=== PATIENT | male | born 1960 | race Caucasian/White ===

== ENCOUNTER 2020-11-20 14:38 | Inpatient (IN) ==
[2020-11-20] MEDS ORDERED: Ibuprofen 400 MG TABLET PO PRN (16:57)
[2020-11-20] MEDS ORDERED: Naloxone 0.4 MG/ML INJ IVP PRN (16:57)
[2020-11-20] MEDS ORDERED: *HR* LORazepam 2 MG/ML VIAL IVP PRN ×3 (17:02)
[2020-11-20] MEDS ORDERED: Thiamine (B-1) 200 MG in 0.9 % Sodium Chloride 50 ML IVPB ONE (17:03)
[2020-11-20] MEDS: *HR* LORazepam 0.5 MG TABLET PO SCH ×2 (17:29→20:49)
[2020-11-20] MEDS ORDERED: Potassium Chloride 40 MEQ, Lidocaine 1% 2 ML in 0.9 % Sodium Chloride 500 ML IVPB ONE (18:10)
[2020-11-20 18:13] LABS: INR 1.7; Prothrombin Time 19.6 Seconds (9.4-12.1)
[2020-11-20 18:23] LABS: Alanine Aminotransferase 113 Units/L (7-52); Albumin 2.5 g/dL (3.5-5.7); Albumin/Globulin Ratio 0.6 (1.1-2.2); Alkaline Phosphatase 385 Units/L (34-104); Aspartate Amino Transferase 331 Units/L (13-39); Bilirubin,Direct 8.4 mg/dL (0.0-0.2); Bilirubin,Indirect 6.8 mg/dL (0.0-1.0); Bilirubin,Total 15.2 mg/dL (0.3-1.0); Ethanol 42 mg/dL (Less than 10); Globulin 4.4 g/dL (2.4-3.5); Total Protein 6.9 g/dL (6.4-8.9)
[2020-11-20 18:52] LABS: Basophils # 0.1 K/mcL (0.0-0.2); Eosinophils # 0.1 K/mcL (0.0-0.6); Eosinophils % 0.4 %; Hemoglobin 11.8 g/dL (12.9-16.9); Immature Granulocytes % 1.7 % (0-4); Lymphocytes # 1.5 K/mcL (0.6-4.6); Lymphocytes % 12.6 %; Mean Corpuscular HGB Conc 34.7 g/dL (31.6-35.5); Mean Corpuscular Hemoglobin 36.2 pg (28.0-33.3); Mean Corpuscular Volume 104.3 fL (83.0-100.0); Mean Platelet Volume 9.4 fL (9.4-12.4); Monocytes # 1.1 K/mcL (0.0-1.3); Monocytes % 9.1 %; Neutrophils # 8.7 K/mcL (1.6-8.9); Platelet Count 198 K/mcL (140-400); Red Blood Count 3.26 M/mcL (4.19-5.50); Red Cell Distribution Width 14.6 % (11.5-14.5); Segmented Neutrophils % 75.2 %; White Blood Count 11.6 K/mcL (4.3-11.1)
[2020-11-20 18:57] LABS: Acetaminophen < 10 mcg/mL (10-20); BUN/Creatinine Ratio 6 (6-26); Blood Urea Nitrogen 4 mg/dL (6-20); Calcium 8.1 mg/dL (8.6-10.3); Carbon Dioxide 23 mEq/L (23-29); Chloride 97 mEq/L (98-107); Glucose 112 mg/dL (70-105); Lipase 119 Units/L (11-82); Magnesium 1.9 mg/dL (1.6-2.6); Osmolality,Calculated 270 (280-300); Phosphorous 1.8 mg/dL (2.7-4.5); Potassium 2.9 mEq/L (3.5-5.1); Sodium 131 mEq/L (136-145); eGFR For African Americans > 60 (> 60); eGFR For Non-African Americans > 60 (> 60)
[2020-11-20 19:05] LABS: Hepatitis B Surface Antigen Nonreactive (Nonreactive)
[2020-11-20 19:33] LABS: Hepatitis C Virus Antibody Nonreactive (Nonreactive)
[2020-11-20 19:35] LABS: Hepatitis A Antibody IgM Nonreactive (Nonreactive)
[2020-11-20] MEDS ORDERED: Lactulose Oral Soln 20 GM/30 ML UDC PO SCH (21:00)
[2020-11-20] MEDS ORDERED: Potassium Phosphate 44 MEQ in 0.9 % Sodium Chloride 250 ML IVPB ONE (21:32)
[2020-11-20 21:41] LABS: Amphetamine Screen,Urine Negative ng/mL (Cutoff=1000); Barbiturate Screen,Urine Negative ng/mL (Cutoff=200); Benzodiazepines Screen,Urine Negative ng/mL (Cutoff=200); Cannabinoid Screen,Urine Positive ng/mL (Cutoff = 50); Cocaine Screen,Urine Negative ng/mL (Cutoff= 300); Opiate Screen,Urine Negative ng/mL (Cutoff=300); Phencyclidine Screen,Urine Negative ng/mL (Cutoff=25)
[2020-11-21 00:18] LABS: Basophils # 0.1 K/mcL (0.0-0.2); Basophils % 1.1 %; Eosinophils # 0.1 K/mcL (0.0-0.6); Eosinophils % 0.9 %; Hematocrit 34.8 % (37.5-50.1); Hemoglobin 12.3 g/dL (12.9-16.9); Immature Granulocytes % 1.8 % (0-4); Lymphocytes # 1.2 K/mcL (0.6-4.6); Lymphocytes % 12.5 %; Mean Corpuscular HGB Conc 35.3 g/dL (31.6-35.5); Mean Corpuscular Volume 104.8 fL (83.0-100.0); Mean Platelet Volume 9.6 fL (9.4-12.4); Monocytes % 9.7 %; Neutrophils # 7.4 K/mcL (1.6-8.9); Platelet Count 195 K/mcL (140-400); Red Blood Count 3.32 M/mcL (4.19-5.50); Red Cell Distribution Width 14.6 % (11.5-14.5); White Blood Count 9.9 K/mcL (4.3-11.1)
[2020-11-21 00:33] LABS: Alanine Aminotransferase 107 Units/L (7-52); Albumin 2.4 g/dL (3.5-5.7); Albumin/Globulin Ratio 0.6 (1.1-2.2); Alkaline Phosphatase 361 Units/L (34-104); Aspartate Amino Transferase 301 Units/L (13-39); BUN/Creatinine Ratio 6 (6-26); Bilirubin,Direct 9.4 mg/dL (0.0-0.2); Bilirubin,Indirect 5.9 mg/dL (0.0-1.0); Bilirubin,Total 15.3 mg/dL (0.3-1.0); Blood Urea Nitrogen 5 mg/dL (6-20); Calcium 7.9 mg/dL (8.6-10.3); Carbon Dioxide 24 mEq/L (23-29); Chloride 98 mEq/L (98-107); Glucose 127 mg/dL (70-105); Magnesium 2.3 mg/dL (1.6-2.6); Osmolality,Calculated 269 (280-300); Sodium 130 mEq/L (136-145); Total Protein 6.4 g/dL (6.4-8.9); eGFR For African Americans > 60 (> 60); eGFR For Non-African Americans > 60 (> 60)
[2020-11-21 00:34] LABS: BUN/Creatinine Ratio 6 (6-26); Blood Urea Nitrogen 5 mg/dL (6-20); Calcium 7.8 mg/dL (8.6-10.3); Carbon Dioxide 24 mEq/L (23-29); Chloride 98 mEq/L (98-107); Glucose 124 mg/dL (70-105); Osmolality,Calculated 271 (280-300); Potassium 2.9 mEq/L (3.5-5.1); Sodium 131 mEq/L (136-145); eGFR For African Americans > 60 (> 60); eGFR For Non-African Americans > 60 (> 60)
[2020-11-21] MEDS ORDERED: Potassium Phosphate 44 MEQ in 0.9 % Sodium Chloride 250 ML IVPB ONE ×2 (07:50→11:00)
[2020-11-21] MEDS ORDERED: Potassium Chloride 20 MEQ, Lidocaine 1% 2 ML in 0.9 % Sodium Chloride 250 ML IVPB ONE (07:50)
[2020-11-21] MEDS: *HR* LORazepam 0.5 MG TABLET PO SCH ×3 (08:46→20:52)
[2020-11-21] MEDS: Thiamine (B-1) 100 MG TABLET PO SCH (08:46)
[2020-11-21] MEDS: Lactulose Oral Soln 20 GM/30 ML UDC PO SCH ×3 (08:46→20:52)
[2020-11-21] MEDS: Vitamin B Complex/Vit C/Vit E 1 EACH TABLET PO SCH (08:46)
[2020-11-21] MEDS: Folic Acid 1 MG TABLET PO SCH (08:47)
[2020-11-21 10:14] LABS: BUN/Creatinine Ratio 8 (6-26); Blood Urea Nitrogen 6 mg/dL (6-20); Calcium 8.2 mg/dL (8.6-10.3); Carbon Dioxide 26 mEq/L (23-29); Chloride 100 mEq/L (98-107); Glucose 116 mg/dL (70-105); Osmolality,Calculated 275 (280-300); Potassium 3.1 mEq/L (3.5-5.1); Sodium 133 mEq/L (136-145); eGFR For African Americans > 60 (> 60); eGFR For Non-African Americans > 60 (> 60)
[2020-11-22 04:02] LABS: Bilirubin,Urine Moderate (Negative); Blood,Urine Negative (Negative); Clarity,Urine Clear (Clear); Color,Urine Dark-Yellow (Yellow); Glucose,Urine (UA) Normal (Normal); Ketones,Urine Negative (Negative); Leukocyte Esterase,Urine Negative (Negative); Nitrite,Urine Negative (Negative); Protein,Urine Negative (Neg-Trace); Specific Gravity,Urine 1.006 (1.010-1.025); Urobilinogen,Urine Normal (Normal)
[2020-11-22 04:43] LABS: Basophils # 0.1 K/mcL (0.0-0.2); Eosinophils # 0.1 K/mcL (0.0-0.6); Eosinophils % 0.9 %; Hematocrit 32.8 % (37.5-50.1); Hemoglobin 11.1 g/dL (12.9-16.9); Immature Granulocytes % 2.3 % (0-4); Lymphocytes # 1.8 K/mcL (0.6-4.6); Lymphocytes % 16.2 %; Mean Corpuscular HGB Conc 33.8 g/dL (31.6-35.5); Mean Corpuscular Hemoglobin 35.7 pg (28.0-33.3); Mean Corpuscular Volume 105.5 fL (83.0-100.0); Mean Platelet Volume 9.7 fL (9.4-12.4); Monocytes % 9.4 %; Neutrophils # 7.7 K/mcL (1.6-8.9); Platelet Count 192 K/mcL (140-400); Red Blood Count 3.11 M/mcL (4.19-5.50); Red Cell Distribution Width 14.6 % (11.5-14.5); Segmented Neutrophils % 70.2 %; White Blood Count 10.9 K/mcL (4.3-11.1)
[2020-11-22 05:03] LABS: BUN/Creatinine Ratio 8 (6-26); Blood Urea Nitrogen 6 mg/dL (6-20); Calcium 8.2 mg/dL (8.6-10.3); Carbon Dioxide 24 mEq/L (23-29); Chloride 100 mEq/L (98-107); Glucose 108 mg/dL (70-105); Magnesium 1.9 mg/dL (1.6-2.6); Osmolality,Calculated 270 (280-300); Potassium 2.8 mEq/L (3.5-5.1); Sodium 131 mEq/L (136-145); eGFR For African Americans > 60 (> 60); eGFR For Non-African Americans > 60 (> 60)
[2020-11-22] MEDS ORDERED: Potassium Chloride 40 MEQ, Lidocaine 1% 2 ML in 0.9 % Sodium Chloride 500 ML IVPB ONE (06:21)
[2020-11-22 08:15] LABS: Alanine Aminotransferase 86 Units/L (7-52); Albumin 2.3 g/dL (3.5-5.7); Albumin/Globulin Ratio 0.6 (1.1-2.2); Alkaline Phosphatase 323 Units/L (34-104); Aspartate Amino Transferase 224 Units/L (13-39); Bilirubin,Direct 9.5 mg/dL (0.0-0.2); Bilirubin,Indirect 7.2 mg/dL (0.0-1.0); Bilirubin,Total 16.7 mg/dL (0.3-1.0); Globulin 3.7 g/dL (2.4-3.5)
[2020-11-22] MEDS: Vitamin B Complex/Vit C/Vit E 1 EACH TABLET PO SCH (09:00)
[2020-11-22] MEDS: Lactulose Oral Soln 20 GM/30 ML UDC PO SCH ×3 (09:00→20:16)
[2020-11-22] MEDS: *HR* LORazepam 0.5 MG TABLET PO SCH ×3 (09:01→20:16)
[2020-11-22] MEDS: Thiamine (B-1) 100 MG TABLET PO SCH (09:01)
[2020-11-22] MEDS: Folic Acid 1 MG TABLET PO SCH (09:01)
[2020-11-22] MEDS ORDERED: Potassium Phosphate 44 MEQ in 0.9 % Sodium Chloride 250 ML IVPB ONE (15:38)
[2020-11-23 00:30] LABS: Basophils # 0.1 K/mcL (0.0-0.2); Eosinophils # 0.1 K/mcL (0.0-0.6); Eosinophils % 1.3 %; Hematocrit 33.2 % (37.5-50.1); Hemoglobin 11.1 g/dL (12.9-16.9); Lymphocytes # 1.8 K/mcL (0.6-4.6); Lymphocytes % 16.4 %; Mean Corpuscular HGB Conc 33.4 g/dL (31.6-35.5); Mean Corpuscular Hemoglobin 36.3 pg (28.0-33.3); Mean Corpuscular Volume 108.5 fL (83.0-100.0); Mean Platelet Volume 9.4 fL (9.4-12.4); Monocytes # 1.1 K/mcL (0.0-1.3); Monocytes % 9.7 %; Neutrophils # 7.6 K/mcL (1.6-8.9); Platelet Count 186 K/mcL (140-400); Red Blood Count 3.06 M/mcL (4.19-5.50); Red Cell Distribution Width 14.6 % (11.5-14.5); Segmented Neutrophils % 68.6 %; White Blood Count 11.1 K/mcL (4.3-11.1)
[2020-11-23 00:39] LABS: Prothrombin Time 23.2 Seconds (9.4-12.1)
[2020-11-23 01:03] LABS: Alanine Aminotransferase 82 Units/L (7-52); Albumin 2.3 g/dL (3.5-5.7); Albumin/Globulin Ratio 0.6 (1.1-2.2); Alkaline Phosphatase 255 Units/L (34-104); Aspartate Amino Transferase 197 Units/L (13-39); BUN/Creatinine Ratio 7 (6-26); Bilirubin,Direct 10.7 mg/dL (0.0-0.2); Bilirubin,Indirect 6.2 mg/dL (0.0-1.0); Bilirubin,Total 16.9 mg/dL (0.3-1.0); Blood Urea Nitrogen 6 mg/dL (6-20); Calcium 8.1 mg/dL (8.6-10.3); Carbon Dioxide 23 mEq/L (23-29); Chloride 101 mEq/L (98-107); Globulin 3.6 g/dL (2.4-3.5); Glucose 107 mg/dL (70-105); Osmolality,Calculated 272 (280-300); Potassium 2.9 mEq/L (3.5-5.1); Sodium 132 mEq/L (136-145); Total Protein 5.9 g/dL (6.4-8.9); eGFR For African Americans > 60 (> 60); eGFR For Non-African Americans > 60 (> 60)
[2020-11-23] MEDS ORDERED: Potassium Phosphate 44 MEQ in 0.9 % Sodium Chloride 250 ML IVPB ONE (07:33)
[2020-11-23] MEDS: Folic Acid 1 MG TABLET PO SCH (09:44)
[2020-11-23] MEDS: Lactulose Oral Soln 20 GM/30 ML UDC PO SCH ×3 (09:44→20:07)
[2020-11-23] MEDS: *HR* LORazepam 0.5 MG TABLET PO SCH ×3 (09:44→20:07)
[2020-11-23] MEDS: Thiamine (B-1) 100 MG TABLET PO SCH (09:44)
[2020-11-23] MEDS: Ondansetron 4 MG/2 ML VIAL IVP PRN (09:44)
[2020-11-23] MEDS: Vitamin B Complex/Vit C/Vit E 1 EACH TABLET PO SCH (09:45)
[2020-11-24 01:47] LABS: Basophils # 0.1 K/mcL (0.0-0.2); Basophils % 0.9 %; Eosinophils # 0.2 K/mcL (0.0-0.6); Eosinophils % 1.4 %; Hematocrit 34.8 % (37.5-50.1); Hemoglobin 11.5 g/dL (12.9-16.9); Immature Granulocytes % 2.7 % (0-4); Lymphocytes # 1.9 K/mcL (0.6-4.6); Lymphocytes % 16.4 %; Mean Corpuscular Hemoglobin 35.8 pg (28.0-33.3); Mean Corpuscular Volume 108.4 fL (83.0-100.0); Mean Platelet Volume 9.7 fL (9.4-12.4); Monocytes % 8.7 %; Neutrophils # 8.2 K/mcL (1.6-8.9); Platelet Count 214 K/mcL (140-400); Red Blood Count 3.21 M/mcL (4.19-5.50); Red Cell Distribution Width 14.5 % (11.5-14.5); Segmented Neutrophils % 69.9 %; White Blood Count 11.7 K/mcL (4.3-11.1)
[2020-11-24 01:56] LABS: INR 1.9; Prothrombin Time 21.6 Seconds (9.4-12.1)
[2020-11-24 02:33] LABS: Alanine Aminotransferase 85 Units/L (7-52); Albumin 2.3 g/dL (3.5-5.7); Albumin/Globulin Ratio 0.6 (1.1-2.2); Alkaline Phosphatase 289 Units/L (34-104); BUN/Creatinine Ratio 7 (6-26); Bilirubin,Direct 10.6 mg/dL (0.0-0.2); Bilirubin,Indirect 6.5 mg/dL (0.0-1.0); Bilirubin,Total 17.1 mg/dL (0.3-1.0); Blood Urea Nitrogen 6 mg/dL (6-20); Calcium 8.3 mg/dL (8.6-10.3); Carbon Dioxide 19 mEq/L (23-29); Chloride 102 mEq/L (98-107); Glucose 103 mg/dL (70-105); Osmolality,Calculated 270 (280-300); Potassium 3.2 mEq/L (3.5-5.1); Sodium 131 mEq/L (136-145); Total Protein 6.3 g/dL (6.4-8.9); eGFR For African Americans > 60 (> 60); eGFR For Non-African Americans > 60 (> 60)
[2020-11-24 02:42] LABS: Aspartate Amino Transferase 191 Units/L (13-39)
[2020-11-24] MEDS: Ondansetron 4 MG/2 ML VIAL IVP PRN (07:18)
[2020-11-24] MEDS ORDERED: Potassium Chloride 40 MEQ, Lidocaine 1% 2 ML in 0.9 % Sodium Chloride 500 ML IVPB ONE (07:33)
[2020-11-24] MEDS: Folic Acid 1 MG TABLET PO SCH (08:48)
[2020-11-24] MEDS: Vitamin B Complex/Vit C/Vit E 1 EACH TABLET PO SCH (08:48)
[2020-11-24] MEDS: Thiamine (B-1) 100 MG TABLET PO SCH (08:48)
[2020-11-24] MEDS: *HR* LORazepam 0.5 MG TABLET PO SCH ×3 (08:51→15:11)
[2020-11-24] MEDS ORDERED: Pantoprazole 40 MG VIAL IVP SCH (09:00)
[2020-11-24] MEDS ORDERED: Lactulose Oral Soln 20 GM/30 ML UDC PO SCH (09:00)
[2020-11-24] MEDS: Ondansetron 4 MG/2 ML VIAL IVP SCH ×2 (12:39→17:30)
[2020-11-24 15:47] VITALS: BP 103/73
[2020-11-24 18:38] LABS: Bacteria,Urine Few per hpf (None-Few); Bilirubin,Urine Large (Negative); Blood,Urine Negative (Negative); Clarity,Urine Turbid (Clear); Color,Urine Dark-Yellow (Yellow); Glucose,Urine (UA) Normal (Normal); Ketones,Urine Negative (Negative); Leukocyte Esterase,Urine Negative (Negative); Mucus,Urine Few per lpf (None-Few); Nitrite,Urine Negative (Negative); PH,Urine 6.5 pH Units (5.0-8.0); Protein,Urine Trace mg/dL (Neg-Trace); RBC,Urine 0-3 per hpf (0-3); Specific Gravity,Urine 1.015 (1.010-1.025); Squamous Epithelial Cell,Urine Few per hpf (None-Few); Urobilinogen,Urine Normal (Normal); WBC,Urine 0-3 per hpf (0-3)
[2020-11-26] MEDS ORDERED: *HR* LORazepam 0.5 MG TABLET PO SCH (09:00)
== END 2020-11-24 18:40 | disposition short-term general hospital (02) | DRG 433 ==
LOC: 2NNU → SUATTDRO 16:49
PROVIDERS: ADMIT Pharmacist; ATTEND Pharmacist